=== PATIENT | female | born 1990 | race Caucasian/White ===

== ENCOUNTER 2020-05-29 14:32 | Emergency (ER) | payer MEDICAID ==
[~2020-05-29] VITALS: Ht 157.5 cm; Wt 78.2 kg
[2020-05-29 14:38] VITALS: BP 125/88; TEMP 98.2
[2020-05-29 16:20] LABS: COLLECTION METHOD CLEAN CATCH
[2020-05-29 16:28] LABS: MUCOUS Present /lpf; PH 6 (5-8); URINE APPEARANCE Hazy; URINE BACTERIA Rare /hpf; URINE BILIRUBIN Negative (NEGATIVE); URINE BLOOD 3+ (NEGATIVE); URINE COLOR Yellow; URINE GLUCOSE Negative (NEGATIVE); URINE KETONE Trace (NEGATIVE); URINE LEUKOCYTE ESTERASE 1+ (NEGATIVE); URINE NITRATE Negative (NEGATIVE); URINE PROTEIN(semi-quant) 1+ (NEGATIVE); URINE RBC 20-50 /hpf; URINE UROBILINOGEN Negative (NEGATIVE)
[2020-05-29 17:55] LABS: BASO % 0.3 % (0.0-2.0); EOS % 0.4 % (0-4.0); GRAN # 4.9 (1.4-6.5); GRAN % 64.8 % (42.2-75.2); HEMATOCRIT 39.8 % (37.0-47.0); HEMOGLOBIN 13.2 g/dl (12.5-16.0); LYMPH # 2.2 (1.2-3.4); LYMPH % 28.6 % (20.0-51.0); MEAN CELL VOLUME 89 fl (80.0-100.0); MEAN CORPUSCULAR HEMOGLOBIN 30 pg (27.0-31.0); MEAN CORPUSCULAR HGB CONC 33 g/dl (33.0-37.0); MEAN PLATELET VOLUME 9.7 fl (7.4-10.4); MONO # 0.4 (0.1-0.6); MONO % 5.6 % (1.7-9.3); PLATELET COUNT 315 K/mm3 (130-400); RED BLOOD COUNT 4.48 M/mm3 (4.10-5.30); REDCELL DISTRIBUTION WIDTH-CV 13.6 % (11.5-14.5)
[2020-05-29 18:06] LABS: ALBUMIN 4.4 gm/dL (3.5-5.0); BILIRUBIN,TOTAL 0.5 mg/dL (0.0-1.0); CREATININE, serum 0.99 (0.52-1.25); POTASSIUM 3.4 mmol/L (3.4-5.0); TOTAL PROTEIN 8.5 gm/dL (6.4-8.2)
[2020-05-29] MEDS ORDERED: NORCO 325 MG-51 TAB PO (19:16)
[2020-05-29] MEDS ORDERED: OMNICEF 300MG300 MG PO (19:16)
[2020-05-29 19:58] VITALS: PULSE 75
== END 2020-05-29 19:58 | disposition home or self-care (01) ==
LOC: COL.ER 14:32 → EDBD 14:33 → COL.ER 19:58
PROVIDERS: Emergency Medicine; Nurse Practitioner Primary Care
DX: N39.0 Urinary tract infection, site not specified (principal); N20.0 Calculus of kidney
CPT/HCPCS: J0696; J1885; J2270; J2405; J7030; Q9967

== ENCOUNTER 2021-11-19 04:19 | Emergency (ER) | payer MEDICAID ==
[~2021-11-19] VITALS: Ht 160 cm; Wt 83.2 kg
[~2021-11-19 04:19] MED LIST: NORCO 325 MG-51 TAB PO; OMNICEF 300MG300 MG PO
[2021-11-19] MEDS ORDERED: EPIPEN 2-PAK1 MG/ML IM (04:23)
[2021-11-19 04:26] VITALS: TEMP 98.2
[2021-11-19] MEDS ORDERED: PEPCID 20MG TAB20 MG PO (05:18)
[2021-11-19] MEDS ORDERED: NORCO 325 MG-51 TAB PO (05:18)
[2021-11-19 05:22] VITALS: BP 112/74; PULSE 98
== END 2021-11-19 06:00 | disposition home or self-care (01) ==
LOC: COL.ER 04:19
DX: R21 Rash and other nonspecific skin eruption (principal); Z88.0 Allergy status to penicillin; Z91.013 Allergy to seafood
CPT/HCPCS: J8540